=== PATIENT | male | born 1990 | race African-American/Black ===

== ENCOUNTER 2019-03-19 10:14 | Emergency (ER) | payer SELFPAY ==
[~2019-03-19] VITALS: Ht 172.7 cm; Wt 81.6 kg
[2019-03-19 11:00] VITALS: BP 170/86
[2019-03-19 11:12] LABS: BILIRUBIN,URINE NEGATIVE (NEG); CLARITY,URINE CLEAR; COLOR,URINE YELLOW; NITRITE,URINE NEGATIVE (NEG); PROTEIN,URINE NEGATIVE (NEG-TRACE)
[2019-03-19] MEDS ORDERED: AZITHROMYCIN 250 MG TABLET. PO ONE (11:15)
[2019-03-19] MEDS ORDERED: cefTRIAXone IM 250 MG VIAL IM ONE (11:15)
[2019-03-19 11:19] LABS: WBC,URINE TNTC /HPF (0-4)
[2019-03-19 11:20] LABS: BACTERIA,URINE MODERATE /HPF (0-FEW); RBC,URINE FOBS /HPF (0-2)
[2019-03-19] MEDS ORDERED: CEPH-264 PO (11:35)
--- NOTE | 2019-03-19 11:37 | PHYS DOC ---
Past Medical History Past Medical History: Hypertension Past Surgical History: Other Additional Past Surgical Histo: Left leg Alcohol Use: None Drug Use: Marijuana Adult General Chief Complaint Chief Complaint: PAIN ON URINATION HPI HPI 28 y/o male presents to ER via POV for concerns he may have STD as he has had penile white/yellowish discharge and burning w/urination. Pt reports symptoms started on Monday. He reports he had unprotected sex on Monday. He is requesting tx for STD concerns. He denies fever, hematuria, lesions/rash, or difficulty urinating. Review of Systems Review of Systems Constitutional: Denies fever or chills [] HENT: Denies oral lesions/sore throat [] Cardiovascular: No additional information not addressed in HPI [] GI: Denies abdominal pain, nausea, vomiting, bloody stools or diarrhea [] : Denies hematuria/urinary frequency. Reports penile discharge/burning w/urinary. Denies scrotal/penile lesions/rash Musculoskeletal: Denies back pain Integument: Denies rash or skin lesions [] Neurologic: Denies headache, focal weakness or sensory changes [] All other systems were reviewed and found to be within normal limits, except as documented in this note. Current Medications Current Medications Current Medications Medications (Trade) Dose Ordered Sig/Chris Start Time Stop Time Status Last Admin Dose Admin Azithromycin (Zithromax) 1,000 mg 1X ONCE 03/19/19 11:15 03/19/19 11:16 DC 03/19/19 11:36 1,000 MG Ceftriaxone Sodium (Rocephin Im) 250 mg 1X ONCE 03/19/19 11:15 03/19/19 11:16 DC 03/19/19 11:36 250 MG Allergies Allergies Allergies Coded Allergies Type Severity Reaction Last Updated Verified No Known Drug Allergies 03/19/19 No Physical Exam Physical Exam Constitutional: Well developed, well nourished, no acute distress, non-toxic appearance. [] HENT: Normocephalic, atraumatic, oropharynx moist, nose normal. [] Eyes: Pupils equal, conjunctiva normal, no discharge. [] Neck: Normal range of motion, no tenderness, supple, no stridor. [] Cardiovascular:Heart rate regular rhythm, no murmur [] Lungs & Thorax: Bilateral breath sounds clear to auscultation. Resp. e qual/nonlabored Abdomen: Bowel sounds normal, soft, no tenderness/distention Skin: Warm, dry, no erythema, no rash. [] Back: No tenderness, no CVA tenderness. [] Extremities: ROM intact, no edema. [] Neurologic: Alert and oriented X 3, normal motor function, normal sensory fu nction, no focal deficits noted. [] Psychologic: Affect normal, judgement normal, mood normal. [] Current Patient Data Vital Signs Vital Signs Date Time Temp Pulse Resp B/P (MAP) Pulse Ox O2 Delivery O2 Flow Rate FiO2 03/19/19 11:00 97.7 68 18 170/86 (114) 99 Room Air 97.7 Lab Values Laboratory Tests Test 03/19/19 10:24 Urine Color Yellow Urine Clarity Clear Urine pH 6.0 Urine Specific [place] 1.025 Urine Protein Negative mg/dL (NEG-TRACE) Urine Glucose (UA) Negative mg/dL (NEG) Urine Ketones (Stick) Negative mg/dL (NEG) Urine Blood Trace (NEG) Urine Nitrite Negative (NEG) Urine Bilirubin Negative (NEG) Urine Urobilinogen Dipstick 1.0 mg/dL (0.2 mg/dL) Urine Leukocyte Esterase Large (NEG) Urine RBC Fobs /HPF (0-2) Urine WBC Tntc /HPF (0-4) Urine Bacteria Moderate /HPF (0-FEW) Urine Chlamydia DNA (PCR) Negative (Negative) Neisseria gonorrhoeae DNA (PCR) Positive (Negative) A Microbiology 03/19/19 Urine Culture - Final, Complete 03/19/19 Urine Culture Result 1 (DAVID) - Final, Complete EKG EKG [] Radiology/Procedures Radiology/Procedures [] Course & Med Decision Making Course & Med Decision Making Pertinent Labs reviewed. (See chart for details) Patient was evaluated in the ER for complaints of penile discharge and burning w/urination. Patient had UA showing UTI. Patient requested prophylactic treatment with his current symptoms for concerns for STD- orders placed for IM Rocephin and PO Azithromycin. GC and chlamydia pending at time of discharge patient advised to follow-up on those results in 2-3 days. Discussion had with patient regarding safe sex and condom use. Patient advised on signs and symptoms to return to ER for and discharge instructions were discussed. Will provide patient with community clinic resource sheet for follow-up purposes. Dragon Disclaimer Dragon Disclaimer This electronic medical record was generated, in whole or in part, using a voice recognition dictation system. Departure Departure Impression: Primary Impression: Urinary tract infection Additional Impression: Concern about STD in male without diagnosis Disposition: 01 HOME, SELF-CARE Condition: STABLE Referrals: NO PCP (PCP) Patient Instructions: Safe Sex, Sexually Transmitted Disease, Urinary Tract Infection Additional Instructions: Use condoms during sexual intercourse to prevent further infection. You are being provided with educational information on STD- you received prophylactic treatment while in the Emergency Department as your test results were not back. You are not being diagnosed with an STD. Drink plenty of water daily. Follow-up on your test results in 2-3 days for results with medical records. Avoid sexual intercourse until rechecked at your primary doctor's office for retest to make sure infection completely treated. Scripts Cephalexin (KEFLEX) 500 Mg Capsule 1 CAP PO BID, #14 CAP 0 Refills Prov: QIAN LAYNE APRN 03/19/19 Problem Qualifiers QIAN LAYNE APRN March 19, 2019 11:37
== END 2019-03-19 12:12 | disposition home or self-care (01) ==
LOC: ER 10:14
DX: N39.0 Urinary tract infection, site not specified (principal); Z20.2 Contact with and (suspected) exposure to infections with a predominantly sexual mode of transmission; I10 Essential (primary) hypertension
CPT/HCPCS: 81001; 87086; 87491; 87591; 96372; 99284; J0696; Q0144